=== PATIENT | male | born 1950 | race Caucasian/White ===

== ENCOUNTER 2020-12-05 15:45 | Outpatient (CLI) | payer MEDICARE, MEDICAID, SELFPAY | END 2020-12-05 15:46 | disposition home or self-care (01) | LOC: RAD 01-01 09:00 | PROVIDERS: PCP Family Medicine; Visit Provider Internal Medicine Cardiovascular Disease | DX: I50.9 Heart failure, unspecified (principal) | CPT/HCPCS: 80053; 83735; 83880; 84443; 85025 ==

== ENCOUNTER 2025-05-10 15:13 | Outpatient (CLI) | payer MEDICARE, MEDICAID, SELFPAY ==
--- NOTE | 2025-05-10 15:23 | XR_ITS ---
WS: [id number] Exam: XR chest 2V* [id number] Date/Time of Exam: 05/10/2025 3:33 PM Reason For Exam: COPD No priors. Consolidating infiltrates are noted in the medial RIGHT upper lobe. The LEFT lung is clear. There is hyperinflation. Normal cardiomediastinal silhouette. Right-sided apical pleural thickening. Bony structures are intact. XR/XR chest 2V* [id number] IMPRESSION: 1. Consolidated density in the RIGHT upper lobe probably representing pneumonia . A mass is not completely excluded. Radiographic follow-up is indicated to con firm resolution. 2. Pulmonary hyperinflation which may indicate obstructive lung disease.
[2025-05-10 17:05] LABS: Hematocrit 37.6 % (37-53); Hemoglobin 12.30 g/dL (11.27-16.99); Mean Corpuscular HGB Conc 32.7 g/dL (30-55); Mean Corpuscular Hemoglobin 29.6 pg (27-33); Mean Corpuscular Volume 90.6 fl (82-101); Nucleated Red Blood Cells % 0 %; Platelet Count 398 10^3/cmm (157-399); Red Blood Count 4.15 10^6/uL (3.85-5.65); White Blood Count 11.32 10^3/uL (3.29-11.43)
[2025-05-10 17:59] LABS: Alanine Aminotransferase 27 U/L (0-41); Albumin Level 3.4 g/dL (3.5-5.2); Alkaline Phosphatase 85 U/L (40-130); Anion Gap 15.8 (5-19); Aspartate Amino Transferase 25 U/L (0-40); Blood Urea Nitrogen 12 mg/dL (8-23); Calcium 9.4 mg/dL (8.5-10.5); Carbon Dioxide 28 mmol/L (22-29); Chloride 97 mmol/L (98-107); Cholesterol 150 mg/dL (0-200); Globulin 4.0 g/dL (1.3-4.6); Glucose 104 mg/dL (65-115); HDL Cholesterol 29 mg/dL (60-100); Osmolality Calculated 284 mOsm/kg (285-295); Potassium 3.8 mmol/L (3.5-5.1); Sodium 137 mmol/L (136-145); Total Protein 7.4 g/dL (6.6-8.7); Triglycerides 92 mg/dL (0-150)
[2025-05-10 18:09] LABS: Estmated Average Glucose 128; Hemoglobin A1C 6.1 % (4.0-6.0)
[2025-05-10 18:14] LABS: Creatinine Urine, Random 92 mg/dL (39-259); Microalbum Creatinine Ratio Ur 11 mg/dL (0-20)
== END 2025-05-10 15:14 | disposition home or self-care (01) ==
LOC: LAB 15:16
PROVIDERS: PCP Family Medicine; Visit Provider Nurse Practitioner
DX: J44.9 Chronic obstructive pulmonary disease, unspecified (principal); R79.9 Abnormal finding of blood chemistry, unspecified; I25.2 Old myocardial infarction; J98.4 Other disorders of lung; R91.8 Other nonspecific abnormal finding of lung field
CPT/HCPCS: 36415; 71046; 80053; 80061; 82044; 83036; 85025

== ENCOUNTER → 2025-06-20 13:07 | Outpatient (BNVA) | payer MEDICARE, MEDICAID, SELFPAY | PROVIDERS: PCP Family Medicine; Visit Provider Nurse Practitioner | DX: J44.9 Chronic obstructive pulmonary disease, unspecified (principal); I70.90 Unspecified atherosclerosis; J94.8 Other specified pleural conditions; R91.8 Other nonspecific abnormal finding of lung field; I70.0 Atherosclerosis of aorta; Q25.46 Tortuous aortic arch | CPT/HCPCS: 71046 ==